=== PATIENT | male | born 1940 | race Caucasian/White ===

== ENCOUNTER 2017-09-30 12:45 | Emergency (ER) | payer MEDICARE, OTHER ==
[2017-09-30 13:37] VITALS: BP 130/52
[2017-09-30 14:27] LABS: CHLORIDE,CL 95 mmol/L (101-111); SODIUM,NA 135 mmol/L (135-145)
--- NOTE | 2017-09-30 14:56 | EDM.PDOC ---
ED HPI GENERAL MEDICAL PROBLEM - General Chief Complaint: General Stated Complaint: INFECTION IN ARM [phone] Time Seen by Provider: 09/30/17 13:35 Source of Information: Reports: Patient, RN, RN Notes Reviewed, Other (Dialysis notes) History Limitations: Reports: No Limitations - History of Present Illness INITIAL COMMENTS - FREE TEXT/NARRATIVE: Pt presents to the ER with multiple complaints. Pt states that he was to see Dr. Lundberg at the clinic today. He was told that he could not be seen by Dr. Lundberg and was to go to the ER. He is concerned about is INR level, his blood sugars, and an infection that he was told he had in his dialysis AV fistula buttonhole. He denies fever, chills, N/V/D, chest pain, or sob. Onset: Gradual - Related Data Allergies Allergy/AdvReac Type Severity Reaction Status Date / Time cephalexin Allergy Unknown unknown Verified 10/05/16 10:20 erythromycin base Allergy Swelling Verified 10/04/16 19:56 Iodinated Contrast- Oral and Allergy Swelling Verified 10/04/16 19:56 IV Dye [Iodinated Contrast Media - IV Dye] levofloxacin [From Levaquin] Allergy Swelling Verified 10/04/16 19:56 sulfamethoxazole Allergy Swelling Verified 10/04/16 19:56 [From Bactrim] trimethoprim [From Bactrim] Allergy Swelling Verified 10/04/16 19:56 Home Meds: Home Meds Allopurinol [Zyloprim] 100 mg PO DAILY 10/04/16 [History] Docusate Sodium [Colace] 100 mg PO BID 10/04/16 [History] Insulin Aspart [NovoLOG] 15 unit SUBCUT ACBED 10/04/16 [History] Insulin Glargine,Hum.Rec.Anlog [Lantus Solostar] 45 unit SQ BEDTIME 10/04/16 [ History] Metoprolol Succinate [Toprol XL] 25 mg PO DAILY 10/04/16 [History] Simvastatin [Zocor] 40 mg PO BEDTIME 10/04/16 [History] Warfarin Sodium [Coumadin] 6 mg PO .SUN,TUES, THUR,SAT 10/04/16 [History] Tamsulosin HCl [Flomax] 0.4 mg PO DAILY 09/30/17 [History] Warfarin [Coumadin] 5 mg PO .MON,WED,FRI 11/03/17 [History] Past Medical History HEENT History: Reports: Impaired Vision Cardiovascular History: Reports: Blood Clots/VTE/DVT, High Cholesterol, Hypertension Gastrointestinal History: Reports: Hiatal Hernia Genitourinary History: Reports: Dialysis Endocrine/Metabolic History: Reports: None, Diabetes, Type II - Past Surgical History HEENT Surgical History: Reports: Cataract Surgery Other Musculoskeletal Surgeries/Procedures:: multiple surgies LLE Social & Family History - Family History Family Medical History: Noncontributory - Tobacco Use Smoking Status *Q: Former Smoker Years of Tobacco use: 40 Used Tobacco, but Quit: Yes Month Tobacco Last Used: 20 years ago - Caffeine Use Caffeine Use: Reports: None - Recreational Drug Use Recreational Drug Use: No ED ROS GENERAL - Review of Systems Review Of Systems: ROS reveals no pertinent complaints other than HPI. ED EXAM, GENERAL - Physical Exam Exam: See Below Exam Limited By: No Limitations General Appearance: Alert, WD/WN, No Apparent Distress Eye Exam: Bilateral Eye: Normal Inspection Ears: Normal External Exam, Hearing Grossly Normal Nose: Normal Inspection Throat/Mouth: Normal Inspection, Normal Voice, No Airway Compromise Head: Atraumatic, Normocephalic Neck: Normal Inspection, Full Range of Motion Respiratory/Chest: No Respiratory Distress, No Accessory Muscle Use, Chest Non- Tender, Decreased Breath Sounds Cardiovascular: Normal Peripheral Pulses, Regular Rate, Rhythm, No Edema, No Gallop, No JVD, No Murmur, No Rub Peripheral Pulses: 2+: Radial (L), Radial (R) GI/Abdominal: Normal Bowel Sounds, Soft, Non-Tender (Male) Exam: Deferred Rectal (Males) Exam: Deferred Back Exam: Normal Inspection, Full Range of Motion Extremities: Normal Inspection, Normal Range of Motion, Non-Tender, No Pedal Edema, Normal Capillary Refill Neurological: Alert, Oriented, Normal Cognition, Normal Gait (with walker), No Motor/Sensory Deficits Psychiatric: Normal Affect, Normal Mood Skin Exam: Warm, Dry, Intact, Normal Color, No Rash, Other (AV fistula to the right upper arm has buttonholes, the lower one is somewhat erythematous. Pt states it was oozing pus 2 days ago and he was started on Abx by dialysis [employer]) Lymphatic: No Adenopathy Course - Vital Signs Last Recorded V/S: Last Vital Signs Temp 97.2 F 09/30/17 13:34 Pulse 77 09/30/17 13:34 Resp 16 09/30/17 13:34 BP 130/52 L 09/30/17 13:34 Pulse Ox 95 09/30/17 13:34 - Orders/Labs/Meds Labs: Laboratory Tests 09/30/17 09/30/17 09/30/17 Range/Units 13:50 13:50 13:50 WBC 7.8 (5.0-10.0) 10^3/uL RBC 3.78 L (4.6-6.2) 10^6/uL Hgb 10.6 L (14.0-18.0) g/dL Hct 35.6 L (40.0-54.0) % MCV 94.2 D (80-100) fL MCH 28.0 (27.0-34.0) pg MCHC 29.8 L (33.0-35.0) g/dL Plt Count 167 (150-450) 10^3/uL Neut % (Auto) 67.6 (42.2-75.2) % Lymph % (Auto) 16.4 L (20.5-50.1) % [place] % (Auto) 8.8 H (2-8) % Eos % (Auto) 6.7 H (1.0-3.0) % Baso % (Auto) 0.5 (0.0-1.0) % PT (9.0-12.0) SEC INR (0.9-1.2) Sodium 135 (135-145) mmol/L Potassium 5.2 H (3.6-5.0) mmol/L Chloride 95 L (101-111) mmol/L Carbon Dioxide 25.0 (21.0-31.0) mmol/L Anion Gap 20.2 BUN 51 H D (7-18) mg/dL Creatinine 5.1 H (0.6-1.3) mg/dL Est Cr Clr Drug Dosing TNP Estimated GFR (MDRD) 11 BUN/Creatinine Ratio 10.00 Glucose 295 H (74-105) mg/dL Lactic Acid 1.3 (0.5-2.2) mmol/L Calcium 8.3 L (8.4-10.2) mg/dl Total Bilirubin 0.5 (0.2-1.0) mg/dL AST 22 (10-42) IU/L ALT 16 (10-60) IU/L Alkaline Phosphatase 170 H (42-121) IU/L Total Protein 8.1 (6.7-8.2) g/dl Albumin 3.2 (3.2-5.5) g/dl Globulin 4.9 Albumin/Globulin Ratio 0.65 /03/17 Range/Units 13:50 WBC (5.0-10.0) 10^3/uL RBC (4.6-6.2) 10^6/uL Hgb (14.0-18.0) g/dL Hct (40.0-54.0) % MCV (80-100) fL MCH (27.0-34.0) pg MCHC (33.0-35.0) g/dL Plt Count (150-450) 10^3/uL Neut % (Auto) (42.2-75.2) % Lymph % (Auto) (20.5-50.1) % [place] % (Auto) (2-8) % Eos % (Auto) (1.0-3.0) % Baso % (Auto) (0.0-1.0) % PT 23.0 H D (9.0-12.0) SEC INR 2.3 H (0.9-1.2) Sodium (135-145) mmol/L Potassium (3.6-5.0) mmol/L Chloride (101-111) mmol/L Carbon Dioxide (21.0-31.0) mmol/L Anion Gap BUN (7-18) mg/dL Creatinine (0.6-1.3) mg/dL Est Cr Clr Drug Dosing Estimated GFR (MDRD) BUN/Creatinine Ratio Glucose (74-105) mg/dL Lactic Acid (0.5-2.2) mmol/L Calcium (8.4-10.2) mg/dl Total Bilirubin (0.2-1.0) mg/dL AST (10-42) IU/L ALT (10-60) IU/L Alkaline Phosphatase (42-121) IU/L Total Protein (6.7-8.2) g/dl Albumin (3.2-5.5) g/dl Globulin Albumin/Globulin Ratio Departure - Departure Time of Disposition: 14:51 Disposition: Home, Self-Care 01 Condition: Fair Clinical Impression: Dialysis AV fistula infection Qualifiers: Encounter type: sequela Qualified Code(s): T82.7XXS - Infection and inflammatory reaction due to other cardiac and vascular devices, implants and grafts, sequela Hyperglycemia due to type 2 diabetes mellitus Qualifiers: Diabetes mellitus skilled nursing insulin use: with equipment operator intermodal yard use Qualified Code(s): E11.65 - Type 2 diabetes mellitus with hyperglycemia - Discharge Information Instructions: Wound Infection, [id number], Hyperglycemia, [id number], Blood Glucose Monitoring, Adult Referrals: David Lundberg MD [Primary Care Provider] - Forms: ED Department Discharge Additional Instructions: Follow up with your primary care facility next week. Continue taking the antibiotic prescribed for the infection in the fistula. Continue monitoring your blood sugar. Continue coumadin as usual.
== END 2017-09-30 15:12 | disposition home or self-care (01) ==
LOC: DL.ED 12:45
DX: T82.7XXS Infection and inflammatory reaction due to other cardiac and vascular devices, implants and grafts, sequela (principal); E11.65 Type 2 diabetes mellitus with hyperglycemia; Z88.1 Allergy status to other antibiotic agents; Z79.899 Other long term (current) drug therapy; Z79.4 Long term (current) use of insulin; Z87.891 Personal history of nicotine dependence; Z79.01 Long term (current) use of anticoagulants
CPT/HCPCS: 36415; 80053; 83605; 85025; 85610; 87040; 99283

== ENCOUNTER 2017-12-15 20:00 | Emergency (ER) | payer MEDICARE, OTHER ==
[2017-12-15] MEDS ORDERED: Sodium Chloride 0.9% 10 ML Syringe FLUSH PRN (20:06)
[2017-12-15] MEDS ORDERED: Acetaminophen/oxyCODONE 325-5 MG Tab PO ONE (20:17)
--- NOTE | 2017-12-15 20:17 | EDM.PDOC ---
ED HPI GENERAL MEDICAL PROBLEM - General Chief Complaint: General Stated Complaint: CAME BY AMBULANCE Time Seen by Provider: 12/15/17 20:05 Source of Information: Reports: Patient, EMS History Limitations: Reports: No Limitations - History of Present Illness INITIAL COMMENTS - FREE TEXT/NARRATIVE: Pt comes to the ED with complaints of weakness to his legs leading to an inability to ambulate. The patient had dialysis today and after his run was unable to stand and needed help to get into the wheelchair to go home. He relates he should of come in at that time. He did not get back to his dry weight 164kg and only got down to 175kg down from 179. Prior to dialysis he was without complaints. He denies any CP. Does complain of SOB but that is chronic for him and he is always SOB. DOes have a congested cough that is non- productive that has been present for the past 2 weeks every since he has not gotten back down to his dry weight after dialysis. Denies any fever or chills. Makes no urine. NO abd pain nausea or vomiting. Does have some swelling to bilateral ankles although this is chronic for him and no increased amount of swelling. Complains of leg cramps primarily in the RLE increasingly over the past few days as well. NO open sores on his body. He is a Tuesday dialysis who was suppose to get an extra dialysis run yesterday due to these complaints although was unable to make it to his appointment. - Related Data Allergies Allergy/AdvReac Type Severity Reaction Status Date / Time cephalexin Allergy Unknown unknown Verified 10/05/16 10:20 erythromycin base Allergy Swelling Verified 10/04/16 19:56 Iodinated Contrast- Oral and Allergy Swelling Verified 10/04/16 19:56 IV Dye [Iodinated Contrast Media - IV Dye] levofloxacin [From Levaquin] Allergy Swelling Verified 10/04/16 19:56 sulfamethoxazole Allergy Swelling Verified 10/04/16 19:56 [From Bactrim] trimethoprim [From Bactrim] Allergy Swelling Verified 10/04/16 19:56 Home Meds: Home Meds Allopurinol [Zyloprim] 100 mg PO DAILY 10/04/16 [History] Docusate Sodium [Colace] 100 mg PO BID 10/04/16 [History] Insulin Aspart [NovoLOG] 15 unit SUBCUT ACBED 10/04/16 [History] Insulin Glargine,Hum.Rec.Anlog [Lantus Solostar] 45 unit SQ BEDTIME 10/04/16 [ History] Metoprolol Succinate [Toprol XL] 25 mg PO DAILY 10/04/16 [History] Simvastatin [Zocor] 40 mg PO BEDTIME 10/04/16 [History] Warfarin Sodium [Coumadin] 6 mg PO .SUN,TUES, THUR,SAT 10/04/16 [History] Tamsulosin HCl [Flomax] 0.4 mg PO DAILY 09/30/17 [History] Warfarin [Coumadin] 5 mg PO .MON,WED,FRI 09/30/17 [History] Past Medical History HEENT History: Reports: Impaired Vision Cardiovascular History: Reports: Blood Clots/VTE/DVT, High Cholesterol, Hypertension Gastrointestinal History: Reports: Hiatal Hernia Genitourinary History: Reports: Dialysis Endocrine/Metabolic History: Reports: None, Diabetes, Type II - Past Surgical History HEENT Surgical History: Reports: Cataract Surgery Other Musculoskeletal Surgeries/Procedures:: multiple surgies LLE Social & Family History - Family History Family Medical History: Noncontributory - Tobacco Use Smoking Status *Q: Former Smoker Years of Tobacco use: 40 Used Tobacco, but Quit: Yes Month Tobacco Last Used: 20 years ago - Caffeine Use Caffeine Use: Reports: None - Recreational Drug Use Recreational Drug Use: No ED ROS GENERAL - Review of Systems Review Of Systems: ROS reveals no pertinent complaints other than HPI. ED EXAM, GENERAL - Physical Exam Exam: See Below Exam Limited By: No Limitations General Appearance: Alert, WD/WN, Anxious, Mild Distress, Other (Morbidly obese patient. Rather malordorous from body odor. ) Eye Exam: Bilateral Eye: Normal Inspection Ears: Normal External Exam Nose: Normal Inspection, Normal Mucosa Throat/Mouth: Normal Inspection, Normal Lips, Normal Teeth Head: Atraumatic Neck: Normal Inspection Respiratory/Chest: No Accessory Muscle Use, Chest Non-Tender, Respiratory Distress (Mild only able to speak in 3-4 word sentences in between congested non -productive coughin. ), Decreased Breath Sounds, Rales (Bases bilaterally. ) Cardiovascular: Normal Peripheral Pulses, Tachycardia, Irregularly Irregular ( Afib with frequent bigeminy. ), Other (Distant heart tones. ) Peripheral Pulses: 2+: Carotid (L), Carotid (R), Radial (L), Radial (R) GI/Abdominal: Normal Bowel Sounds, Soft, Non-Tender, No Distention, Other ( Rounded obese with edema pitting to the lower aspect of the abd with umbilical hernia which is soft and non-tender. Unable to assess for mass or organomegaly due to body habitus. ) (Male) Exam: Deferred Rectal (Males) Exam: Deferred Back Exam: Normal Inspection Extremities: Normal Range of Motion, Normal Capillary Refill, Pedal Edema ( Bilaterally more on the right than the left. Pulses palpable. Jh wraps to bilateraly lower extremities. Tenderness to the right calf intermittently. PT calls it a cramp. ), Leg Pain (R posterior calf. ) Neurological: Alert, Oriented Psychiatric: Normal Affect, Normal Mood Skin Exam: Warm, Intact, Normal Color Lymphatic: No Adenopathy EKG INTERPRETATION EKG Date: 12/15/17 Time: 19:56 Rhythm: A-Fib (With bigeminy.) Rate (Beats/Min): 110 [place]: Normal P-Wave: Variable QRS: Normal ST-T: Normal QT: Normal Comparison: No Change (Frequent VEBs on current and previous EKGs.) Course - Vital Signs Last Recorded V/S: Last Vital Signs Temp 36.7 C 12/15/17 21:52 Pulse 105 H 12/15/17 21:52 Resp 22 H 12/15/17 21:52 BP 115/45 L 12/15/17 21:52 Pulse Ox 92 L 12/15/17 20:00 - Orders/Labs/Meds Orders: Active Orders 24 hr Category Date Time Status EKG 12 Lead [EKG Documentation Completion] [RC] URGENT Care 12/15/17 20:05 Active Peripheral IV Care [RC] . DIRECTED Care 12/15/17 20:06 Active Magnesium Sulfate/Water [Magnesium Sulfate 2 GM in Med 12/15/17 20:47 Active Water 50 ML] 2 gm Premix Bag 1 bag IV ONETIME Sodium Chloride 0.9% [Saline Flush] Med 12/15/17 20:06 Active 10 ml FLUSH ASDIRECTED PRN Peripheral IV Insertion Adult [OM.PC] Stat Oth 12/15/17 20:05 Ordered Medication Orders Magnesium Sulfate 2 gm/ Premix 50 mls @ 25 mls/hr IV ONETIME ONE Stop: 12/15/17 22:46 Last Admin: 12/15/17 20:59 Dose: 25 mls/hr Sodium Chloride (Saline Flush) 10 ml FLUSH ASDIRECTED PRN PRN Reason: Keep Vein Open Last Admin: 12/15/17 20:35 Dose: 10 ml Labs: Laboratory Tests 12/15/17 12/15/17 12/15/17 Range/Units 20:17 20:17 20:17 WBC 11.0 H (5.0-10.0) 10^3/uL RBC 3.34 L (4.6-6.2) 10^6/uL Hgb 9.4 L (14.0-18.0) g/dL Hct 31.4 L (40.0-54.0) % MCV 94.0 (80-100) fL MCH 28.1 (27.0-34.0) pg MCHC 29.9 L (33.0-35.0) g/dL Plt Count 191 (150-450) 10^3/uL Neut % (Auto) 80.3 H (42.2-75.2) % Lymph % (Auto) 10.1 L (20.5-50.1) % [place] % (Auto) 7.2 (2-8) % Eos % (Auto) 2.1 (1.0-3.0) % Baso % (Auto) 0.3 (0.0-1.0) % PT 33.3 H D (9.0-12.0) SEC INR 3.3 H (0.9-1.2) Sodium 135 (135-145) mmol/L Potassium 4.8 (3.6-5.0) mmol/L Chloride 96 L (101-111) mmol/L Carbon Dioxide 28.0 (21.0-31.0) mmol/L Anion Gap 15.8 BUN 37 H (7-18) mg/dL Creatinine 4.7 H (0.6-1.3) mg/dL Est Cr Clr Drug Dosing 16.23 mL/min Estimated GFR (MDRD) 12 BUN/Creatinine Ratio 7.87 Glucose 188 H (74-105) mg/dL Calcium 7.2 L (8.4-10.2) mg/dl Magnesium 1.4 L (1.8-2.5) mg/dL Total Bilirubin 0.8 (0.2-1.0) mg/dL AST 21 (10-42) IU/L ALT 17 (10-60) IU/L Alkaline Phosphatase 190 H (42-121) IU/L Troponin I 0.05 H* (0.00-0.02) ng/ml C-Reactive Protein (0.0-1.3) mg/dL B-Natriuretic Peptide 245 H (0-100) pg/ml Total Protein 7.7 (6.7-8.2) g/dl Albumin 2.9 L (3.2-5.5) g/dl Globulin 4.8 Albumin/Globulin Ratio 0.60 12/15/17 Range/Units 20:17 WBC (5.0-10.0) 10^3/uL RBC (4.6-6.2) 10^6/uL Hgb (14.0-18.0) g/dL Hct (40.0-54.0) % MCV (80-100) fL MCH (27.0-34.0) pg MCHC (33.0-35.0) g/dL Plt Count (150-450) 10^3/uL Neut % (Auto) (42.2-75.2) % Lymph % (Auto) (20.5-50.1) % [place] % (Auto) (2-8) % Eos % (Auto) (1.0-3.0) % Baso % (Auto) (0.0-1.0) % PT (9.0-12.0) SEC INR (0.9-1.2) Sodium (135-145) mmol/L Potassium (3.6-5.0) mmol/L Chloride (101-111) mmol/L Carbon Dioxide (21.0-31.0) mmol/L Anion Gap BUN (7-18) mg/dL Creatinine (0.6-1.3) mg/dL Est Cr Clr Drug Dosing mL/min Estimated GFR (MDRD) BUN/Creatinine Ratio Glucose (74-105) mg/dL Calcium (8.4-10.2) mg/dl Magnesium (1.8-2.5) mg/dL Total Bilirubin (0.2-1.0) mg/dL AST (10-42) IU/L ALT (10-60) IU/L Alkaline Phosphatase (42-121) IU/L Troponin I (0.00-0.02) ng/ml C-Reactive Protein 9.2 H (0.0-1.3) mg/dL B-Natriuretic Peptide (0-100) pg/ml Total Protein (6.7-8.2) g/dl Albumin (3.2-5.5) g/dl Globulin Albumin/Globulin Ratio Meds: Medications Generic Name Dose Route Start Last Admin Trade Name Freq PRN Reason Stop Dose Admin Magnesium Sulfate 2 gm/ Premix 50 mls @ 25 mls/hr 12/15/17 20:47 12/15/17 20: 59 IV 12/15/17 22:46 25 mls/hr ONETIME ONE Administration Sodium Chloride 10 ml 12/15/17 20:06 12/15/17 20:35 Saline Flush FLUSH 10 ml ASDIRECTED PRN Administration Keep Vein Open Discontinued Medications Generic Name Dose Route Start Last Admin Trade Name Freq PRN Reason Stop Dose Admin Oxycodone/Acetaminophen 1 tab 12/15/17 20:17 12/15/17 20:32 Percocet 325-5 Mg PO 12/15/17 20:18 1 tab ONETIME ONE Administration - Radiology Interpretation Free Text/Narrative:: No acute change per radiology Although I question vascular congestion bilaterally in the lower lobes. - Re-Assessments/Exams Free Text/Narrative Re-Assessment/Exam: 12/15/17 22:08 Magnesium 2gram IVPB. Percocet for leg cramps. Continue oxygen therapy. Departure - Departure Time of Disposition: 21:40 Disposition: DC/Tfer to Acute Hospital 02 Clinical Impression: CHF, Congestive heart failure, Hypomagnesemia, Chronic anticoagulation, Muscle cramps - Discharge Information Referrals: PCP,None [Primary Care Provider] - Forms: ED Department Discharge, Interfacility Transfer [facility] ED Communication - Discussed Case With (1) Discussed Case With (1): Admitting Provider (Spoke with DR. Scott at [facility] in the ER and he did accept the patient in transfer at this time. May have to hold int ED for a short of period of time for a bed to open. Lisa is on divert. Pt okay with waiting in the ED in [place] for a bed to open. HPI ER COURSE concerns and findings were relayed to Dr. Scott over the phone and he accepted the patient in transfer to [facility].) - My Orders Last 24 Hours: My Active Orders 12/15/17 20:05 EKG 12 Lead [EKG Documentation Completion] [RC] URGENT Peripheral IV Insertion Adult [OM.PC] Stat 12/15/17 20:06 Peripheral IV Care [RC] . DIRECTED Sodium Chloride 0.9% [Saline Flush] 10 ml FLUSH ASDIRECTED PRN 12/15/17 20:47 Magnesium Sulfate/Water [Magnesium Sulfate 2 GM in Water 50 ML] 2 gm Premix Bag 1 bag IV ONETIME - Assessment/Plan Last 24 Hours: My Active Orders 12/15/17 20:05 EKG 12 Lead [EKG Documentation Completion] [RC] URGENT Peripheral IV Insertion Adult [OM.PC] Stat 12/15/17 20:06 Peripheral IV Care [RC] . DIRECTED Sodium Chloride 0.9% [Saline Flush] 10 ml FLUSH ASDIRECTED PRN 12/15/17 20:47 Magnesium Sulfate/Water [Magnesium Sulfate 2 GM in Water 50 ML] 2 gm Premix Bag 1 bag IV ONETIME Assessment:: SOB, fluid over load CRF needs dialysis hypomagnesemia. Weakness unable to stand most likely due to fluid overload and electrolyte abnormality. Generalize muscle cramps most likely due to the low magnesium. Atrial fibrillation with frequent ventricular escape beats which is chronic for this patient. Therapeutic INR. Morbid obesity.
[2017-12-15] MEDS ORDERED: Magnesium Sulfate/Water 2 GM in Premix Bag 1 BAG IV ONE (20:47)
[2017-12-15 21:54] VITALS: BP 115/45
--- NOTE | 2017-12-21 09:50 | EKG ---
12/15/2017- PATRIC DAY - FINDINGS: EKG, per my reading, shows atrial fibrillation with frequent PVCs. MOD /[id number]
== END 2017-12-15 22:50 ==
LOC: DL.ED 20:00
DX: I13.0 Hypertensive heart and chronic kidney disease with heart failure and stage 1 through stage 4 chronic kidney disease, or unspecified chronic kidney disease (principal); I50.9 Heart failure, unspecified; N18.9 Chronic kidney disease, unspecified; E83.42 Hypomagnesemia; E66.01 Morbid (severe) obesity due to excess calories; E78.00 Pure hypercholesterolemia, unspecified; E11.9 Type 2 diabetes mellitus without complications; I48.91 Unspecified atrial fibrillation; Z79.4 Long term (current) use of insulin; Z79.01 Long term (current) use of anticoagulants; Z79.899 Other long term (current) drug therapy; Z88.1 Allergy status to other antibiotic agents; Z88.2 Allergy status to sulfonamides; Z91.041 Radiographic dye allergy status; Z87.891 Personal history of nicotine dependence; Z99.2 Dependence on renal dialysis
CPT/HCPCS: 36415; 71045; 80053; 83735; 83880; 84484; 85025; 85610; 86140; 93005; 93010; 99285; A9270; J7050; J3475

== ENCOUNTER 2018-04-21 10:33 | Emergency (ER) | payer MEDICARE, OTHER ==
[2018-04-21] MEDS ORDERED: Sodium Chloride 0.9% 10 ML Syringe FLUSH PRN (10:34)
[2018-04-21] MEDS ORDERED: Sodium Chloride 0.9% 1,000 ML IV ONE (10:47)
[2018-04-21 10:55] VITALS: BP 106/59
[2018-04-21 11:23] LABS: O2 DELIVERY DEVICE ROOM AIR; PCO2 VENOUS 46 mmHg (41-51); PH,VENOUS 7.41 (7.31-7.41)
[2018-04-21 11:24] LABS: BASE EXCESS VENOUS 3.8 mmol/l ((-2)-(+3)); BICARBONATE,VENOUS 29 mmol/l (19-25); O2 SATURATION VENOUS 61.7 % (60-80); PO2 VENOUS 33 mmHg (35-42)
--- NOTE | 2018-04-21 11:58 | CR ---
CLINICAL HISTORY: 77-year-old morbidly obese male with low-grade temperature and tachycardia. Chest p ain. INTERPRETATION: Upright rotated AP portable chest film with respiratory motion reveals no new signs o f focal lobar pneumonia, i.e., no new infiltrate or atelectasis when compared directly to 15 December 2017 exam. Cardiomegaly but without alveolar edema or dependent pleural effusion. CONCLUSION: No new cardiopulmonary abnormality since November exam (technically suboptimal).
[2018-04-21] MEDS ORDERED: Piperacillin/Tazobactam 3.375 GM in Sodium Chloride 0.9% 100 ML IV ONE (12:00)
[2018-04-21] MEDS ORDERED: Acetaminophen 325 MG Tab PO ONE (12:11)
[2018-04-21] MEDS ORDERED: Vancomycin 1.5 GM in Sodium Chloride 0.9% 500 ML IV ONE (12:13)
--- NOTE | 2018-04-21 12:16 | EDM.PDOC ---
ED HPI GENERAL MEDICAL PROBLEM - General Chief Complaint: Cardiovascular Problem Stated Complaint: AMBULANCE Time Seen by Provider: 04/21/18 10:53 Source of Information: Reports: Patient, EMS, EMS Notes Reviewed, RN, RN Notes Reviewed History Limitations: Reports: No Limitations - History of Present Illness INITIAL COMMENTS - FREE TEXT/NARRATIVE: Patient presents to ER per [facility] with complaint of "slipping" out of bed. Patient is somewhat confused upon arrival. States he has been somewhat "out of sorts". Patient states he is due for dialysis tomorrow. He denies illness. Onset: Today Location: Reports: Generalized Quality: Reports: Ache Severity: Moderate Improves with: Reports: None Worsens with: Reports: None Associated Symptoms: Reports: No Other Symptoms Generalized Pain Score (Numeric/FACES): 1 - Related Data Allergies Allergy/AdvReac Type Severity Reaction Status Date / Time cephalexin Allergy Unknown unknown Verified 10/05/16 10:20 erythromycin base Allergy Swelling Verified 10/04/16 19:56 Iodinated Contrast- Oral and Allergy Swelling Verified 10/04/16 19:56 IV Dye [Iodinated Contrast Media - IV Dye] levofloxacin [From Levaquin] Allergy Swelling Verified 10/04/16 19:56 sulfamethoxazole Allergy Swelling Verified 10/04/16 19:56 [From Bactrim] trimethoprim [From Bactrim] Allergy Swelling Verified 10/04/16 19:56 Home Meds: Home Meds Allopurinol [Zyloprim] 100 mg PO DAILY 10/04/16 [History] Docusate Sodium [Colace] 100 mg PO BID 10/04/16 [History] Insulin Aspart [NovoLOG] 15 unit SUBCUT ACBED 10/04/16 [History] Insulin Glargine,Hum.Rec.Anlog [Lantus Solostar] 45 unit SQ BEDTIME 10/04/16 [ History] Metoprolol Succinate [Toprol XL] 25 mg PO DAILY 10/04/16 [History] Simvastatin [Zocor] 40 mg PO BEDTIME 10/04/16 [History] Warfarin Sodium [Coumadin] 6 mg PO .SUN,TUES, THUR,SAT 10/04/16 [History] Tamsulosin HCl [Flomax] 0.4 mg PO DAILY 09/30/17 [History] Warfarin [Coumadin] 5 mg PO .MON,WED,FRI 09/30/17 [History] Past Medical History HEENT History: Reports: Impaired Vision Cardiovascular History: Reports: Blood Clots/VTE/DVT, High Cholesterol, Hypertension Respiratory History: Reports: SOB Gastrointestinal History: Reports: Hiatal Hernia Genitourinary History: Reports: Dialysis Endocrine/Metabolic History: Reports: Diabetes, Type II - Past Surgical History HEENT Surgical History: Reports: Cataract Surgery Other Musculoskeletal Surgeries/Procedures:: multiple surgies LLE Social & Family History - Family History Family Medical History: Noncontributory - Tobacco Use Smoking Status *Q: Former Smoker Used Tobacco, but Quit: No - Caffeine Use Caffeine Use: Reports: None - Recreational Drug Use Recreational Drug Use: No ED ROS GENERAL - Review of Systems Review Of Systems: ROS reveals no pertinent complaints other than HPI. ED EXAM, GENERAL - Physical Exam Exam: See Below Exam Limited By: No Limitations General Appearance: Lethargic Eye Exam: Bilateral Eye: EOMI, Normal Inspection Ears: Normal External Exam, Normal Canal, Hearing Grossly Normal, Normal TMs Nose: Normal Inspection, Normal Mucosa, No Blood Throat/Mouth: Normal Inspection, Normal Lips, Normal Teeth, Normal Gums, Normal Oropharynx, Normal Voice, No Airway Compromise Head: Atraumatic, Normocephalic Neck: Normal Inspection, Supple, Non-Tender, Full Range of Motion Respiratory/Chest: Other (decreased air entry) Cardiovascular: Other (Irregular. Pedal/dependent edema wrapped with Jh wraps. ) GI/Abdominal: Other (large distended umbilical hernia.) (Male) Exam: Deferred Rectal (Males) Exam: Deferred Back Exam: Decreased Range of Motion Extremities: Other (decreased range of motion. Weak.) Neurological: Other (somewhat confusesd and lethargic upon arrival. Sensorium clears as time passes. ) Psychiatric: Normal Affect, Normal Mood Skin Exam: Warm, Dry, Intact, Normal Color, No Rash Lymphatic: No Adenopathy EKG INTERPRETATION EKG Date: 04/21/18 Time: 10:38 Rhythm: A-Fib Rate (Beats/Min): 132 EKG Interpretation Comments: EKG done 04/21/18 at 10:38 showed ventricular bigeminy, nonspecific intraventricular conduction delay and abnormal R prog, consider ASMI or Lead placement. Course - Vital Signs Last Recorded V/S: Last Vital Signs Temp 101.0 F H 04/21/18 10:53 Pulse 138 H 04/21/18 10:53 Resp 40 H 04/21/18 10:53 BP 106/59 L 04/21/18 10:53 Pulse Ox 94 L 04/21/18 10:53 - Orders/Labs/Meds Orders: Active Orders 24 hr Category Date Time Status EKG Documentation Completion [RC] STAT Care 04/21/18 10:35 Active Peripheral IV Care [RC] . DIRECTED Care 04/21/18 10:35 Active CULTURE BLOOD [BC] Stat Lab 04/21/18 10:50 Results CULTURE BLOOD [BC] Stat Lab 04/21/18 10:57 Received Blood Culture x2 Reflex Set [OM.PC] Stat Oth 04/21/18 10:35 Ordered Peripheral IV Insertion Adult [OM.PC] Stat Oth 04/21/18 10:35 Ordered Labs: Laboratory Tests 04/21/18 04/21/18 04/21/18 Range/Units 10:57 10:57 10:57 WBC 22.5 H (5.0-10.0) 10^3/uL RBC 3.87 L (4.6-6.2) 10^6/uL Hgb 10.2 L (14.0-18.0) g/dL Hct 34.8 L (40.0-54.0) % MCV 89.9 D (80-100) fL MCH 26.4 L (27.0-34.0) pg MCHC 29.3 L (33.0-35.0) g/dL Plt Count 189 (150-450) 10^3/uL Neut % (Auto) 88.3 H (42.2-75.2) % Lymph % (Auto) 5.0 L (20.5-50.1) % Alcorn % (Auto) 6.0 (2-8) % Eos % (Auto) 0.5 L (1.0-3.0) % Baso % (Auto) 0.2 (0.0-1.0) % PT (9.0-12.0) SEC INR (0.9-1.2) VBG pH (7.31-7.41) VBG pCO2 (41-51) mmHg VBG pO2 (35-42) mmHg VBG HCO3 (19-25) mmol/l VBG O2 Saturation (60-80) % VBG Base Excess ((-2)-(+3)) mmol/l O2 Delivery Device Sodium 132 L (135-145) mmol/L Potassium 4.9 (3.6-5.0) mmol/L Chloride 95 L (101-111) mmol/L Carbon Dioxide 26.0 (21.0-31.0) mmol/L Anion Gap 15.9 BUN 41 H (7-18) mg/dL Creatinine 5.1 H (0.6-1.3) mg/dL Est Cr Clr Drug Dosing 14.96 mL/min Estimated GFR (MDRD) 11 BUN/Creatinine Ratio 8.03 Glucose 366 H (74-105) mg/dL Lactic Acid 2.3 H (0.5-2.2) mmol/L Calcium 9.1 D (8.4-10.2) mg/dl Magnesium (1.8-2.5) mg/dL Total Bilirubin 0.6 (0.2-1.0) mg/dL AST 25 (10-42) IU/L ALT 15 (10-60) IU/L Alkaline Phosphatase 184 H (42-121) IU/L Troponin I 0.06 H* (0.00-0.02) ng/ml B-Natriuretic Peptide 444 H (0-100) pg/ml Total Protein 7.3 (6.7-8.2) g/dl Albumin 2.9 L (3.2-5.5) g/dl Globulin 4.4 Albumin/Globulin Ratio 0.66 04/21/18 18 / Range/Units 10:57 10:57 11:04 WBC (5.0-10.0) 10^3/uL RBC (4.6-6.2) 10^6/uL Hgb (14.0-18.0) g/dL Hct (40.0-54.0) % MCV (80-100) fL MCH (27.0-34.0) pg MCHC (33.0-35.0) g/dL Plt Count (150-450) 10^3/uL Neut % (Auto) (42.2-75.2) % Lymph % (Auto) (20.5-50.1) % Alcorn % (Auto) (2-8) % Eos % (Auto) (1.0-3.0) % Baso % (Auto) (0.0-1.0) % PT 30.1 H (9.0-12.0) SEC INR 3.1 H (0.9-1.2) VBG pH 7.41 (7.31-7.41) VBG pCO2 46 (41-51) mmHg VBG pO2 33 L (35-42) mmHg VBG HCO3 29 H (19-25) mmol/l VBG O2 Saturation 61.7 (60-80) % VBG Base Excess 3.8 H ((-2)-(+3)) mmol/l O2 Delivery Device Room air Sodium (135-145) mmol/L Potassium (3.6-5.0) mmol/L Chloride (101-111) mmol/L Carbon Dioxide (21.0-31.0) mmol/L Anion Gap BUN (7-18) mg/dL Creatinine (0.6-1.3) mg/dL Est Cr Clr Drug Dosing mL/min Estimated GFR (MDRD) BUN/Creatinine Ratio Glucose (74-105) mg/dL Lactic Acid (0.5-2.2) mmol/L Calcium (8.4-10.2) mg/dl Magnesium 1.6 L (1.8-2.5) mg/dL Total Bilirubin (0.2-1.0) mg/dL AST (10-42) IU/L ALT (10-60) IU/L Alkaline Phosphatase (42-121) IU/L Troponin I (0.00-0.02) ng/ml B-Natriuretic Peptide (0-100) pg/ml Total Protein (6.7-8.2) g/dl Albumin (3.2-5.5) g/dl Globulin Albumin/Globulin Ratio Meds: Medications Discontinued Medications Generic Name Dose Route Start Last Admin Trade Name Freq PRN Reason Stop Dose Admin Acetaminophen 650 mg 04/21/18 12:11 04/21/18 12:31 Tylenol PO 04/21/18 12:12 650 mg NOW ONE Administration Sodium Chloride 1,000 mls @ 999 mls/hr 04/21/18 10:47 04/21/18 11:15 Normal Saline IV 04/21/18 11:47 999 mls/hr .BOLUS ONE Administration Piperacillin Sod/Tazobactam 100 mls @ 200 mls/hr 04/21/18 12:00 04/21/18 12: 31 Sod 3.375 gm/ Sodium Chloride IV 04/21/18 12:29 200 mls/hr ONETIME ONE Administration Vancomycin HCl 1.5 gm/ Sodium 500 mls @ 334 mls/hr 04/21/18 12:13 04/21/18 12 :31 Chloride IV 04/21/18 13:42 334 mls/hr ONETIME ONE Administration Insulin Human Regular 10 unit 04/21/18 12:38 04/21/18 12:41 Humulin R IV 04/21/18 12:39 10 units ONETIME ONE Administration Sodium Chloride 10 ml 04/21/18 10:34 04/21/18 11:15 Saline Flush FLUSH 10 ml ASDIRECTED PRN Administration Keep Vein Open - Radiology Interpretation Free Text/Narrative:: Chest xray: Cardiomegaly, no other acute findings See rad report - Re-Assessments/Exams Free Text/Narrative Re-Assessment/Exam: 04/21/18 16:40 Discussed Pt case with Dr. Em at [facility], who agreed to accept the patient at this time. Bariatric ambulance was requested for transport Departure - Departure Time of Disposition: 12:13 Disposition: DC/Tfer to [facility] 02 Reason for Transfer *Q: Other Condition: Fair, Serious Clinical Impression: Sepsis Qualifiers: Sepsis type: sepsis due to unspecified organism Qualified Code(s): A41.9 - Sepsis, unspecified organism Referrals: PCP,None [Primary Care Provider] - Forms: ED Department Discharge, Interfacility Transfer EMTALA - My Orders Last 24 Hours: My Active Orders 04/21/18 10:35 EKG Documentation Completion [RC] STAT Peripheral IV Care [RC] . DIRECTED Blood Culture x2 Reflex Set [OM.PC] Stat Peripheral IV Insertion Adult [OM.PC] Stat 04/21/18 10:50 CULTURE BLOOD [BC] Stat 04/21/18 10:57 CULTURE BLOOD [BC] Stat - Assessment/Plan Last 24 Hours: My Active Orders 04/21/18 10:35 EKG Documentation Completion [RC] STAT Peripheral IV Care [RC] . DIRECTED Blood Culture x2 Reflex Set [OM.PC] Stat Peripheral IV Insertion Adult [OM.PC] Stat 04/21/18 10:50 CULTURE BLOOD [BC] Stat 04/21/18 10:57 CULTURE BLOOD [BC] Stat
[2018-04-21] MEDS ORDERED: Insulin Regular, Human 100 Units/ML 3 ML Vial IV ONE (12:38)
== END 2018-04-21 12:55 ==
LOC: DL.ED 10:33
DX: A41.9 Sepsis, unspecified organism (principal); E78.00 Pure hypercholesterolemia, unspecified; I10 Essential (primary) hypertension; E11.9 Type 2 diabetes mellitus without complications; Z88.1 Allergy status to other antibiotic agents; Z91.041 Radiographic dye allergy status; Z88.2 Allergy status to sulfonamides; Z79.4 Long term (current) use of insulin; Z79.899 Other long term (current) drug therapy; Z87.891 Personal history of nicotine dependence
CPT/HCPCS: 36415; 71045; 80053; 82803; 83605; 83735; 83880; 84484; 85025; 85610; 87040; 87804; 93005; 99285; A9270; J1815; J2543; J3370; J7030; J7040; J7050

== ENCOUNTER 2018-08-01 15:36 | Emergency (ER) | payer MEDICARE, OTHER ==
[2018-08-01 15:50] VITALS: BP 117/60
[2018-08-01] MEDS ORDERED: Sodium Chloride 0.9% 10 ML Syringe FLUSH PRN (15:52)
[2018-08-01 16:42] LABS: ANION GAP 14.9
[2018-08-01] MEDS ORDERED: Bacitracin Oint 1 GM U/D Packet TOP ONE (17:07)
--- NOTE | 2018-08-01 17:46 | EDM.PDOC ---
"Scribed by Edwige Dumont 08/01/18 [id number] for Kevin Restrepo MD ED HPI GENERAL MEDICAL PROBLEM - General Chief Complaint: Trauma Stated Complaint: FELL Time Seen by Provider: 08/01/18 15:38 Source of Information: Reports: Patient, Old Records, RN, RN Notes Reviewed History Limitations: Reports: No Limitations - History of Present Illness INITIAL COMMENTS - FREE TEXT/NARRATIVE: Pt presents to ER from dialysis after falling in the bathroom, and being too weak to get up. Dialysis nurses report pt has had a 22lb wt gain in the past 2 to 3 days. Pt reports that he fell at home last night and struck his head, but did not have a LOC. He also c/o pain in the middle and low back from the fall. Pt states that he has become progressively weaker this week. Last night he was unable to get up after falling, and he called the ambulance to help him into bed , but did not come to the ER. Pt denies chest pain, lightheadedness, fever, or chills. He admits to shortness of breath, but states that he always has some shortness of breath. Pt was converted to a trauma chart by RN when it was discovered that this anticoagulated (warfarin) pt fell at 0010HRS this morning and struck his head. Onset: Today Onset Date: 08/01/18 Onset Time: 00:10 Duration: Constant, Getting Worse Location: Reports: Head, Back, Generalized Quality: Reports: Ache Severity: Moderate Improves with: Reports: None Worsens with: Reports: None Associated Symptoms: Reports: No Other Symptoms - Related Data Allergies Allergy/AdvReac Type Severity Reaction Status Date / Time cephalexin Allergy Unknown unknown Verified 10/05/16 10:20 erythromycin base Allergy Swelling Verified 10/04/16 19:56 Iodinated Contrast- Oral and Allergy Swelling Verified 10/04/16 19:56 IV Dye [Iodinated Contrast Media - IV Dye] levofloxacin [From Levaquin] Allergy Swelling Verified 10/04/16 19:56 sulfamethoxazole Allergy Swelling Verified 10/04/16 19:56 [From Bactrim] trimethoprim [From Bactrim] Allergy Swelling Verified 10/04/16 19:56 Home Meds: Home Meds Allopurinol [Zyloprim] 100 mg PO DAILY 10/04/16 [History] Docusate Sodium [Colace] 100 mg PO BID 10/04/16 [History] Insulin Aspart [NovoLOG] 15 unit SUBCUT ACBED 10/04/16 [History] Insulin Glargine,Hum.Rec.Anlog [Lantus Solostar] 45 unit SQ BEDTIME 10/04/16 [ History] Simvastatin [Zocor] 40 mg PO BEDTIME 10/04/16 [History] Warfarin Sodium [Coumadin] 7.5 mg PO ASDIRECTED 10/04/16 [History] Tamsulosin HCl [Flomax] 0.4 mg PO BEDTIME 09/30/17 [History] Warfarin [Coumadin] 5 mg PO ASDIRECTED 09/30/17 [History] Calcium Acetate [PhosLo] 667 mg PO ASDIRECTED 08/01/18 [History] Gabapentin [Neurontin] 300 mg PO DAILY 08/01/18 [History] Magnesium Oxide [Magnesium] 400 mg PO DAILY 08/01/18 [History] Past Medical History HEENT History: Reports: Impaired Vision Cardiovascular History: Reports: Blood Clots/VTE/DVT, High Cholesterol, Hypertension, SOB on Exertion Respiratory History: Reports: SOB Gastrointestinal History: Reports: Hiatal Hernia Genitourinary History: Reports: Dialysis Endocrine/Metabolic History: Reports: None, Diabetes, Type II, Obesity/BMI 30+ - Past Surgical History HEENT Surgical History: Reports: Cataract Surgery Other Musculoskeletal Surgeries/Procedures:: multiple surgies LLE Social & Family History - Family History Family Medical History: Noncontributory - Caffeine Use Caffeine Use: Reports: None - Living Situation & Occupation Living situation: Reports: Alone Occupation: Retired Review of Systems - Review of Systems Review Of Systems: ROS reveals no pertinent complaints other than HPI. ED EXAM, GENERAL - Physical Exam Exam: See Below Free Text/Narrative:: PRIMARY TRAUMA SURVEY: Arrives by wheel chair from [facility] without c-collar or head blocked/strapped. Pt awake, alert, oriented to person, place, and date. AIRWAY: Patent nasal and oral airways. Conversant with clear speech. BREATHING: Spontaneous respirations, with lungs decreased sounds in B/L bases, crackles and rales to auscultation B/L. CIRCULATION: Good color, no cyanosis. Intact peripheral pulses at B/L upper distal extremities, Rt arm fistula w/palp. thrill and dressing in place from recent dialysis access with no active bleeding. Heart irreg/irreg. DISABILITY/DEFORMITIES: No bleeding. No upper or lower extremity pain, obvious deformity, lacerations, abrasions, swelling, bruising, discoloration, or other signs of injury. Gallito pelvis intact, stable and non-tender. Abdomen obese benign to exam. Chest non-tender anteriorly, no flail chest, crepitus, or subcutaneous emphysema. Neuro. grossly intact with pt. A&O x3, appropriate conversation, no confusion, CN II-XII intact. No acute motor or sensory deficits, GCS 15 on arrival to ER. Skin clean, dry, warm, and intact. EXPOSURE: No visible injury to back, no vertebral gallito tenderness. Neck non-tender, pt not willing to wear C-collar. SECONDARY TRAUMA SURVEY FOLLOWS: Exam Limited By: No Limitations General Appearance: Alert, No Apparent Distress, Obese, Other (chronically ill, but non-toxic appearing) Eye Exam: Left Eye: Other (chronic Rt pupil sluggishness), Bilateral Eye: EOMI Ears: Normal External Exam, Hearing Grossly Normal Nose: Normal Inspection, Normal Mucosa, No Blood Throat/Mouth: Normal Lips, Normal Oropharynx, Normal Voice, No Airway Compromise Head: Atraumatic, Normocephalic Neck: Normal Inspection, Supple, Non-Tender, Full Range of Motion, Other (C- spine cleared by CT scan, pt not willing to wear C-collar) Respiratory/Chest: No Respiratory Distress, No Accessory Muscle Use, Chest Non- Tender, Decreased Breath Sounds, Crackles, Rales. No: Rhonchi, Wheezing Cardiovascular: Tachycardia, Extra Beats, Irregularly Irregular, Other GI/Abdominal: Normal Bowel Sounds, Soft, No Distention, Other (benign obese abdomen) (Male) Exam: Deferred Rectal (Males) Exam: Deferred Back Exam: Paraspinal Tenderness (upper/mid thoracic and low lumbar regions), Vertebral Tenderness (mild at upper thoracic). No: CVA Tenderness (L), CVA Tenderness (R), Muscle Spasm Extremities: Normal Range of Motion, Pedal Edema. No: Joint Swelling, Increased Warmth Neurological: Alert, Oriented, CN II-XII Intact, Normal Cognition, No Motor/ Sensory Deficits, Other (generalized weakness. GCS 15 at 1hr, and at time of transfer.) Psychiatric: Normal Affect, Normal Mood Skin Exam: Warm, Dry, Normal Color, Other (subacute appearing superficial skin tears x2 at left dorsal hand 1cm x 1xm, and distal left forearm 2cm x 2cm, no active bleeding, no FB, no sign of infection) EKG INTERPRETATION EKG Date: 08/01/18 Time: 15:46 Rhythm: A-Fib Rate (Beats/Min): 104 [place]: Normal P-Wave: Present QRS: Other (ventricular bigeminy and nonspecific IVCD with LAD) ST-T: Normal QT: Normal Course - Vital Signs Last Recorded V/S: Last Vital Signs Temp 36.9 C 08/01/18 15:49 Pulse 101 H 08/01/18 15:49 Resp 19 08/01/18 15:49 BP 117/60 08/01/18 15:49 Pulse Ox 94 L 08/01/18 15:49 - Orders/Labs/Meds Orders: Active Orders 24 hr Category Date Time Status Blood Glucose Check, Bedside [RC] ONETIME Care 08/01/18 15:52 Active EKG 12 Lead [EKG Documentation Completion] [RC] STAT Care 08/01/18 15:51 Active Peripheral IV Care [RC] . DIRECTED Care 08/01/18 15:53 Active Cervical Spine wo Cont [CT] Stat Exams 08/01/18 15:48 Taken Chest 1V Frontal [CR] Stat Exams 08/01/18 15:50 Taken Head wo Cont [CT] Stat Exams 08/01/18 15:48 Taken Lumbar Spine wo Cont [CT] Stat Exams 08/01/18 15:48 Taken Thoracic Spine wo Cont [CT] Stat Exams 08/01/18 15:48 Taken CULTURE BLOOD [BC] Stat Lab 08/01/18 16:00 Results CULTURE BLOOD [BC] Stat Lab 08/01/18 16:09 Received Sodium Chloride 0.9% [Saline Flush] Med 08/01/18 15:52 Active 10 ml FLUSH ASDIRECTED PRN Blood Culture x2 Reflex Set [OM.PC] Stat Oth 08/01/18 15:52 Ordered Peripheral IV Insertion Adult [OM.PC] Stat Oth 08/01/18 15:51 Ordered Medication Orders Sodium Chloride (Saline Flush) 10 ml FLUSH ASDIRECTED PRN PRN Reason: Keep Vein Open Last Admin: 08/01/18 16:05 Dose: 10 ml Labs: Laboratory Tests 08/01/18 08/01/18 08/01/18 Range/Units 16:09 16:09 16:09 WBC 8.8 (5.0-10.0) 10^3/uL RBC 4.10 L (4.6-6.2) 10^6/uL Hgb 11.0 L (14.0-18.0) g/dL Hct 37.2 L (40.0-54.0) % MCV 90.7 (80-100) fL MCH 26.8 L (27.0-34.0) pg MCHC 29.6 L (33.0-35.0) g/dL Plt Count 188 (150-450) 10^3/uL Neut % (Auto) 79.4 H (42.2-75.2) % Lymph % (Auto) 10.5 L (20.5-50.1) % Blair % (Auto) 6.8 (2-8) % Eos % (Auto) 3.2 H (1.0-3.0) % Baso % (Auto) 0.1 (0.0-1.0) % PT 31.3 H (9.0-12.0) SEC INR 3.2 H (0.9-1.2) APTT 39.5 H (22.0-34.0) SEC Sodium 132 L (135-145) mmol/L Potassium 4.9 (3.6-5.0) mmol/L Chloride 95 L (101-111) mmol/L Carbon Dioxide 27.0 (21.0-31.0) mmol/L Anion Gap 14.9 BUN 47 H (7-18) mg/dL Creatinine 5.4 H (0.6-1.3) mg/dL Est Cr Clr Drug Dosing 14.13 mL/min Estimated GFR (MDRD) 10 BUN/Creatinine Ratio 8.70 Glucose 291 H (74-105) mg/dL Calcium 8.0 L (8.4-10.2) mg/dl Phosphorus 3.6 (2.5-4.6) mg/dL Magnesium 1.6 L (1.8-2.5) mg/dL Total Bilirubin 0.6 (0.2-1.0) mg/dL AST 18 (10-42) IU/L ALT 17 (10-60) IU/L Alkaline Phosphatase 174 H (42-121) IU/L Creatine Kinase (26-174) IU/L Creatine Kinase Index (0-2.4) % CK-MB (CK-2) (0.4-4.7) ng/mL Troponin I 0.05 H* (0.00-0.02) ng/ml B-Natriuretic Peptide 249 H (0-100) pg/ml Total Protein 7.7 (6.7-8.2) g/dl Albumin 3.0 L (3.2-5.5) g/dl Globulin 4.7 Albumin/Globulin Ratio 0.64 // Range/Units 16:09 WBC (5.0-10.0) 10^3/uL RBC (4.6-6.2) 10^6/uL Hgb (14.0-18.0) g/dL Hct (40.0-54.0) % MCV (80-100) fL MCH (27.0-34.0) pg MCHC (33.0-35.0) g/dL Plt Count (150-450) 10^3/uL Neut % (Auto) (42.2-75.2) % Lymph % (Auto) (20.5-50.1) % Blair % (Auto) (2-8) % Eos % (Auto) (1.0-3.0) % Baso % (Auto) (0.0-1.0) % PT (9.0-12.0) SEC INR (0.9-1.2) APTT (22.0-34.0) SEC Sodium (135-145) mmol/L Potassium (3.6-5.0) mmol/L Chloride (101-111) mmol/L Carbon Dioxide (21.0-31.0) mmol/L Anion Gap BUN (7-18) mg/dL Creatinine (0.6-1.3) mg/dL Est Cr Clr Drug Dosing mL/min Estimated GFR (MDRD) BUN/Creatinine Ratio Glucose (74-105) mg/dL Calcium (8.4-10.2) mg/dl Phosphorus (2.5-4.6) mg/dL Magnesium (1.8-2.5) mg/dL Total Bilirubin (0.2-1.0) mg/dL AST (10-42) IU/L ALT (10-60) IU/L Alkaline Phosphatase (42-121) IU/L Creatine Kinase 36 (26-174) IU/L Creatine Kinase Index 8.6 H (0-2.4) % CK-MB (CK-2) 3.10 (0.4-4.7) ng/mL Troponin I (0.00-0.02) ng/ml B-Natriuretic Peptide (0-100) pg/ml Total Protein (6.7-8.2) g/dl Albumin (3.2-5.5) g/dl Globulin Albumin/Globulin Ratio Meds: Medications Generic Name Dose Route Start Last Admin Trade Name Freq PRN Reason Stop Dose Admin Sodium Chloride 10 ml 08/01/18 15:52 08/01/18 16:05 Saline Flush FLUSH 10 ml ASDIRECTED PRN Administration Keep Vein Open Discontinued Medications Generic Name Dose Route Start Last Admin Trade Name Freq PRN Reason Stop Dose Admin Bacitracin 1 dose 08/01/18 17:07 08/01/18 17:18 Bacitracin Oint 1 Gm TOP 08/01/18 17:08 1 dose ONETIME ONE Administration - Radiology Interpretation Free Text/Narrative:: Margo Aranda ND - [facility] Final Radiology Report Call: [phone] assistance Online chat: [email or web address] Name: PATRIC DAY Age: 77Years M Date: 08/01/2018 SSN: -- : 1940 Study: CT HEAD WO Requesting Physician: KEVIN RESTREPO Images: 150 Addl Studies: Provided Clinical History: fall, head and back injury Contrast: Without Contrast Medium: Contrast Amount: Contrast Method: Page 1 of 2 EXAM: CT Head Without Intravenous Contrast CLINICAL HISTORY: 77 years old, male; Pain; Headache; Post-traumatic; Additional info: Fall, head and back injury TECHNIQUE: Axial computed tomography images of the head/brain without intravenous contrast. All CT scans at this facility use at least one of these dose optimization techniques: automated exposure control; mA and/or kV adjustment per patient size (includes targeted exams where dose is matched to clinical indication); or iterative reconstruction. Coronal and sagittal reformatted images were created and reviewed. COMPARISON: No relevant prior studies available. FINDINGS: Limitations: This examination is suboptimal due to artifact. Brain: There is mild generalized cerebral volume loss. Patchy areas of low attenuation scattered throughout the white matter are nonspecific, but likely represent moderate to severe small vessel ischemic changes. There is no evidence of midline shift, mass effect or cerebral edema. No acute intracranial hemorrhage is identified. Ventricles: Unremarkable. No ventriculomegaly. Bones/joints: Unremarkable. No acute fracture. Soft tissues: Unremarkable. Sinuses: Mild mucosal thickening is noted in the ethmoid air cells bilaterally. No paranasal sinus airfluid levels are identified. Mastoid air cells: Unremarkable as visualized. No mastoid effusion. Orbits: The patient is noted to be status post bilateral cataract surgery. IMPRESSION: PATRIC DAY | Final Radiology Report CONFIDENTIALITY STATEMENT This report is intended only for use by the referring physician, and only in accordance with law. If you received this in error, call [phone]. Page 2 of 2 No acute intracranial abnormality. Thank you for allowing us to participate in the care of your patient. Dictated and Authenticated by: Franki Lee MD 08/01/2018 5:04 PM Central Time IMPRESSION: No evidence of acute fracture or malalignment of the cervical spine. Thank you for allowing us to participate in the care of your patient. PATRIC DAY | Final Radiology Report CONFIDENTIALITY STATEMENT This report is intended only for use by the referring physician, and only in accordance with law. If you received this in error, call [phone]. Page 2 of 2 Dictated and Authenticated by: Franki Lee MD 08/01/2018 4:55 PM Central Time PATRIC DAY | Final Radiology Report CONFIDENTIALITY STATEMENT This report is intended only for use by the referring physician, and only in accordance with law. If you received this in error, call [phone]. Page 2 of 2 IMPRESSION: 1. Disc space narrowing and anterior hypertrophic spurring noted at L1-2 with vacuum disc phenomena noted. 2. Large hypodense mass noted in the left kidney incompletely imaged. Further evaluation is recommended to exclude neoplasm. Thank you for allowing us to participate in the care of your patient. Dictated and Authenticated by: Shreyas Andres DO 08/01/2018 4:54 PM Central Time IMPRESSION: Compression deformity of T4 is present. Fracture is estimated at 25% of the vertebral height. The thoracic spine demonstrates moderate degenerative changes at multiple levels. PATRIC DAY | Final Radiology Report CONFIDENTIALITY STATEMENT This report is intended only for use by the referring physician, and only in accordance with law. If you received this in error, call [phone]. Page 2 of 2 Thank you for allowing us to participate in the care of your patient. Dictated and Authenticated by: Shreyas Andres DO 08/01/2018 5:03 PM Central Time Name: PATRIC DAY Age: 77Years M Date: 08/01/2018 SSN: -- : 1940 Study: XR CHEST 1 VIEW Requesting Physician: KEVIN RESTREPO Images: 1 Addl Studies: Provided Clinical History: shortness of breath, dialysis pt, 22 pound weight gain in 2-3 days Contrast: Contrast Medium: Contrast Amount: Contrast Method: Page 1 of 2 EXAM: XR Chest, 1 View EXAM DATE/TIME: 08/01/2018 4:32 PM CLINICAL HISTORY: 77 years old, male; Signs and symptoms; Shortness of breath; Additional info: Shortness of breath, dialysis pt, 22 pound weight gain in 2-3 days TECHNIQUE: Frontal view of the chest. COMPARISON: CR - Chest 1V Frontal 04/21/2018 11:09 AM FINDINGS: Lungs: Nonspecific bibasilar consolidation is present, consistent with atelectasis, edema, or pneumonia. Mild interstitial prominence consistent with congestive change. Pleural space: Small left pleural effusion is present. No pneumothorax. Heart: The heart demonstrates moderate diffuse enlargement. Mediastinum: Unremarkable. Bones/joints: The thoracic spine demonstrates mild degenerative changes at multiple levels. IMPRESSION: 1. Nonspecific bibasilar consolidation is present, consistent with atelectasis, edema, or pneumonia. 2. Mild interstitial prominence consistent with congestive change. Thank you for allowing us to participate in the care of your patient. PATRIC DAY | Final Radiology Report CONFIDENTIALITY STATEMENT This report is intended only for use by the referring physician, and only in accordance with law. If you received this in error, call [phone]. Page 2 of 2 Dictated and Authenticated by: Shreyas Andres DO 08/01/2018 4:[address] Results Date: 08/01/18 CT Results Time: 16:46 Departure - Departure Time of Disposition: 17:40 Disposition: DC/Tfer to Acute Hospital 02 Condition: Serious Clinical Impression: Generalized weakness, Frequent falls, ESRD (end stage renal disease) on dialysis Traumatic compression fracture of T4 thoracic vertebra Qualifiers: Encounter type: initial encounter Fracture type: closed Qualified Code(s): S22.040A - Wedge compression fracture of fourth thoracic vertebra, initial encounter for closed fracture Skin tear of left hand without complication Qualifiers: Encounter type: initial encounter Qualified Code(s): S61.412A - Laceration without foreign body of left hand, initial encounter Skin tear of left forearm without complication Qualifiers: Encounter type: initial encounter Qualified Code(s): S51.812A - Laceration without foreign body of left forearm, initial encounter Head injury without concussion or intracranial hemorrhage Qualifiers: Encounter type: initial encounter Qualified Code(s): S09.90XA - Unspecified injury of head, initial encounter - Discharge Information Forms: ED Department Discharge, Interfacility Transfer EMTALA - My Orders Last 24 Hours: My Active Orders 08/01/18 15:48 Cervical Spine wo Cont [CT] Stat Head wo Cont [CT] Stat Lumbar Spine wo Cont [CT] Stat Thoracic Spine wo Cont [CT] Stat 08/01/18 15:50 Chest 1V Frontal [CR] Stat 08/01/18 15:51 EKG 12 Lead [EKG Documentation Completion] [RC] STAT Peripheral IV Insertion Adult [OM.PC] Stat 08/01/18 15:52 Blood Glucose Check, Bedside [RC] ONETIME Sodium Chloride 0.9% [Saline Flush] 10 ml FLUSH ASDIRECTED PRN Blood Culture x2 Reflex Set [OM.PC] Stat 08/01/18 15:53 Peripheral IV Care [RC] . DIRECTED 08/01/18 16:00 CULTURE BLOOD [BC] Stat 08/01/18 16:09 CULTURE BLOOD [BC] Stat - Assessment/Plan Last 24 Hours: My Active Orders 08/01/18 15:48 Cervical Spine wo Cont [CT] Stat Head wo Cont [CT] Stat Lumbar Spine wo Cont [CT] Stat Thoracic Spine wo Cont [CT] Stat 08/01/18 15:50 Chest 1V Frontal [CR] Stat 08/01/18 15:51 EKG 12 Lead [EKG Documentation Completion] [RC] STAT Peripheral IV Insertion Adult [OM.PC] Stat 08/01/18 15:52 Blood Glucose Check, Bedside [RC] ONETIME Sodium Chloride 0.9% [Saline Flush] 10 ml FLUSH ASDIRECTED PRN Blood Culture x2 Reflex Set [OM.PC] Stat 08/01/18 15:53 Peripheral IV Care [RC] . DIRECTED 08/01/18 16:00 CULTURE BLOOD [BC] Stat 08/01/18 16:09 CULTURE BLOOD [BC] Stat I have read and agree with the documentation that has been completed regarding this visit. By signing this record, I attest that the documentation was completed in my physical presence and is an accurate record of the encounter."
== END 2018-08-01 20:09 ==
LOC: DL.ED 15:36
DX: S22.049A Unspecified fracture of fourth thoracic vertebra, initial encounter for closed fracture (principal); S09.90XA Unspecified injury of head, initial encounter; S61.412A Laceration without foreign body of left hand, initial encounter; S51.812A Laceration without foreign body of left forearm, initial encounter; R53.1 Weakness; I12.9 Hypertensive chronic kidney disease with stage 1 through stage 4 chronic kidney disease, or unspecified chronic kidney disease; N18.6 End stage renal disease; Z99.2 Dependence on renal dialysis; E11.22 Type 2 diabetes mellitus with diabetic chronic kidney disease; Z79.4 Long term (current) use of insulin; Z79.01 Long term (current) use of anticoagulants; Z79.899 Other long term (current) drug therapy; Z88.8 Allergy status to other drugs, medicaments and biological substances; Z88.2 Allergy status to sulfonamides; Z88.1 Allergy status to other antibiotic agents; W19.XXXA Unspecified fall, initial encounter; Y92.002 Bathroom of unspecified non-institutional (private) residence as the place of occurrence of the external cause
CPT/HCPCS: 36415; 70450; 71045; 72125; 72128; 72131; 80053; 82550; 82553; 82962; 83735; 83880; 84100; 84484; 85025; 85610; 85730; 87040; 93005; 93010; 99285; J7050; 99284

== ENCOUNTER 2018-08-15 08:28 | Emergency (ER) | payer MEDICARE, OTHER ==
--- NOTE | 2018-08-15 08:45 | EDM.PDOC ---
ED HPI GENERAL MEDICAL PROBLEM - General Stated Complaint: IN BY AMBULANCE Time Seen by Provider: 08/15/18 08:25 Source of Information: Reports: Patient, EMS History Limitations: Reports: No Limitations - History of Present Illness INITIAL COMMENTS - FREE TEXT/NARRATIVE: This 77 yo male patient was [facility] due to increased weakness, not responding normally, a low blood pressure and an irregular heart rate. This patient is a dialysis patient with his last run on Tuesday (due for dialysis today). The patient has a history of ESRF, A-fib (on Warfarin), morbid obesity, and CHF. The patient reports that he has been having more difficulties moving around (requires assistance to be able to get out of his bed and chair. The patient reports that he can normally move around, but has not been able to do anything today. Onset: Today Duration: Constant Location: Reports: Generalized Quality: Reports: Other Severity: Moderate Improves with: Reports: None Worsens with: Reports: None Associated Symptoms: Reports: Weakness Generalized Pain Score (Numeric/FACES): 10 - Related Data Allergies Allergy/AdvReac Type Severity Reaction Status Date / Time cephalexin Allergy Unknown unknown Verified 08/15/18 08:37 erythromycin base Allergy Swelling Verified 08/15/18 08:37 Iodinated Contrast- Oral and Allergy Swelling Verified 08/15/18 08:37 IV Dye [Iodinated Contrast Media - IV Dye] levofloxacin [From Levaquin] Allergy Swelling Verified 08/15/18 08:37 sulfamethoxazole Allergy Swelling Verified 08/15/18 08:37 [From Bactrim] trimethoprim [From Bactrim] Allergy Swelling Verified 08/15/18 08:37 Home Meds: Home Meds Allopurinol [Zyloprim] 100 mg PO DAILY 10/04/16 [History] Docusate Sodium [Colace] 100 mg PO BID 10/04/16 [History] Insulin Aspart [NovoLOG] 15 unit SUBCUT ACBED 10/04/16 [History] Insulin Glargine,Hum.Rec.Anlog [Lantus Solostar] 45 unit SQ BEDTIME 10/04/16 [ History] Simvastatin [Zocor] 40 mg PO BEDTIME 10/04/16 [History] Warfarin Sodium [Coumadin] 7.5 mg PO ASDIRECTED 10/04/16 [History] Tamsulosin HCl [Flomax] 0.4 mg PO BEDTIME 09/30/17 [History] Warfarin [Coumadin] 5 mg PO ASDIRECTED 09/30/17 [History] Calcium Acetate [PhosLo] 667 mg PO ASDIRECTED 08/01/18 [History] Gabapentin [Neurontin] 300 mg PO DAILY 08/01/18 [History] Magnesium Oxide [Magnesium] 400 mg PO DAILY 08/01/18 [History] Past Medical History HEENT History: Reports: Impaired Vision Cardiovascular History: Reports: Blood Clots/VTE/DVT, High Cholesterol, Hypertension, SOB on Exertion Respiratory History: Reports: SOB Gastrointestinal History: Reports: Hiatal Hernia Genitourinary History: Reports: Dialysis Endocrine/Metabolic History: Reports: None, Diabetes, Type II, Obesity/BMI 30+ - Past Surgical History HEENT Surgical History: Reports: Cataract Surgery Other Musculoskeletal Surgeries/Procedures:: multiple surgies LLE Social & Family History - Family History Family Medical History: Noncontributory - Caffeine Use Caffeine Use: Reports: None - Living Situation & Occupation Living situation: Reports: Alone Occupation: Retired ED ROS GENERAL - Review of Systems Review Of Systems: ROS reveals no pertinent complaints other than HPI. ED EXAM, GENERAL - Physical Exam Exam: See Below Exam Limited By: No Limitations General Appearance: Alert, WD/WN, Moderate Distress, Obese (Morbid obesity) Eye Exam: Bilateral Eye: EOMI, Normal Inspection, PERRL Ears: Normal External Exam, Normal Canal, Hearing Grossly Normal, Normal TMs Nose: Normal Inspection, Normal Mucosa, No Blood Throat/Mouth: Normal Inspection, Normal Lips, Normal Teeth, Normal Gums, Normal Oropharynx, Normal Voice, No Airway Compromise Head: Atraumatic, Normocephalic Neck: Normal Inspection, Supple, Non-Tender, Full Range of Motion Respiratory/Chest: No Respiratory Distress, Lungs Clear, Normal Breath Sounds, No Accessory Muscle Use, Chest Non-Tender Cardiovascular: Normal Peripheral Pulses, No Gallop, No JVD, No Murmur, No Rub, Irregularly Irregular GI/Abdominal: Normal Bowel Sounds, Soft, Non-Tender, Other (obese) (Male) Exam: Deferred Rectal (Males) Exam: Deferred Back Exam: Normal Inspection, Full Range of Motion, NT Extremities: Normal Inspection, Normal Range of Motion, Non-Tender, Normal Capillary Refill, No Pedal Edema Neurological: Alert, Oriented, CN II-XII Intact, Normal Cognition, Normal Gait, Normal Reflexes, No Motor/Sensory Deficits Psychiatric: Normal Affect, Normal Mood Skin Exam: Warm, Dry, Intact, Normal Color, No Rash Lymphatic: No Adenopathy Course - Vital Signs Last Recorded V/S: Last Vital Signs Temp 36.0 C 08/15/18 08:30 Pulse 114 H 08/15/18 08:30 Resp 20 08/15/18 08:30 BP 80/32 L 08/15/18 08:30 Pulse Ox 97 08/15/18 08:30 - Orders/Labs/Meds Orders: Active Orders 24 hr Category Date Time Status EKG Documentation Completion [RC] URGENT Care 08/15/18 08:27 Active RT Aerosol Therapy [RC] ASDIRECTED Care 08/15/18 09:12 Ordered Labs: Laboratory Tests 08/15/18 08/15/18 08/15/18 Range/Units 08:37 08:37 08:37 WBC 10.1 H (5.0-10.0) 10^3/uL RBC 3.93 L (4.6-6.2) 10^6/uL Hgb 10.5 L (14.0-18.0) g/dL Hct 36.7 L (40.0-54.0) % MCV 93.4 (80-100) fL MCH 26.7 L (27.0-34.0) pg MCHC 28.6 L (33.0-35.0) g/dL Plt Count 177 (150-450) 10^3/uL Neut % (Auto) 73.5 (42.2-75.2) % Lymph % (Auto) 15.6 L (20.5-50.1) % Harris % (Auto) 6.5 (2-8) % Eos % (Auto) 3.9 H (1.0-3.0) % Baso % (Auto) 0.5 (0.0-1.0) % PT 21.0 H D (9.0-12.0) SEC INR 2.2 H (0.9-1.2) Sodium 131 L (135-145) mmol/L Potassium 7.3 H* D (3.6-5.0) mmol/L Chloride 94 L (101-111) mmol/L Carbon Dioxide 24.0 (21.0-31.0) mmol/L Anion Gap 20.3 BUN 89 H D (7-18) mg/dL Creatinine 9.8 H D (0.6-1.3) mg/dL Est Cr Clr Drug Dosing TNP Estimated GFR (MDRD) 5 BUN/Creatinine Ratio 9.08 Glucose 198 H (74-105) mg/dL Calcium 8.6 (8.4-10.2) mg/dl Total Bilirubin 0.6 (0.2-1.0) mg/dL AST 16 (10-42) IU/L ALT 13 (10-60) IU/L Alkaline Phosphatase 165 H (42-121) IU/L Troponin I 0.04 H* (0.00-0.02) ng/ml B-Natriuretic Peptide 224 H (0-100) pg/ml Total Protein 8.1 (6.7-8.2) g/dl Albumin 3.1 L (3.2-5.5) g/dl Globulin 5.0 Albumin/Globulin Ratio 0.62 Meds: Medications Discontinued Medications Generic Name Dose Route Start Last Admin Trade Name Chiloq PRN Reason Stop Dose Admin Albuterol 2.5 mg 08/15/18 09:11 08/15/18 09:25 Proventil Neb Soln NEB 08/15/18 09:12 2.5 mg ONETIME ONE Administration Calcium Gluconate 1 gm 08/15/18 09:11 08/15/18 09:25 Calcium Gluconate IVPUSH 08/15/18 09:12 1 gm ONETIME ONE Administration Dextrose/Water 50 ml 08/15/18 09:27 08/15/18 09:46 Dextrose 50% In Water IVPUSH 08/15/18 09:28 50 ml ONETIME ONE Administration Insulin Human Regular 8 unit 08/15/18 09:27 08/15/18 09:46 Humulin R IV 08/15/18 09:28 8 units ONETIME ONE Administration Sodium Bicarbonate 50 meq 08/15/18 09:14 08/15/18 09:25 Sodium Bicarbonate 8.4% IVPUSH 08/15/18 09:15 50 meq ONETIME ONE Administration Sodium Polystyrene Sulfonate 45 gm 08/15/18 09:27 08/15/18 10:05 Kayexalate PO 08/15/18 09:28 Not Given NOW ONE Departure - Departure Time of Disposition: 10:08 Disposition: DC/Tfer to [facility] 02 Condition: Poor Clinical Impression: Hyperkalemia, Dialysis patient - Discharge Information *PRESCRIPTION DRUG MONITORING PROGRAM REVIEWED*: Not Applicable *COPY OF PRESCRIPTION DRUG MONITORING REPORT IN PATIENT YAHIR: Not Applicable Forms: Interfacility Transfer EMTALA Care Plan Goals: Discussed the examination, history, treatments and lab results with Dr. Odonnell ( Hospitalist with [facility] in ). Dr. Odonnell accepted the patient for continued evaluation and further management. The patient will be transferred by [facility]. - My Orders Last 24 Hours: My Active Orders 08/15/18 08:27 EKG Documentation Completion [RC] URGENT 08/15/18 09:12 RT Aerosol Therapy [RC] ASDIRECTED - Assessment/Plan Last 24 Hours: My Active Orders 08/15/18 08:27 EKG Documentation Completion [RC] URGENT 08/15/18 09:12 RT Aerosol Therapy [RC] ASDIRECTED
[2018-08-15 08:57] VITALS: BP 80/32
[2018-08-15 09:03] LABS: CHLORIDE,CL 94 mmol/L (101-111); SODIUM,NA 131 mmol/L (135-145)
[2018-08-15 09:07] LABS: ANION GAP 20.3
[2018-08-15] MEDS ORDERED: Albuterol 0.083% 2.5 MG/3 ML Neb Soln NEB ONE (09:11)
[2018-08-15] MEDS ORDERED: Calcium Gluconate 10% 1 GM/10 ML SDV IVPUSH ONE (09:11)
[2018-08-15] MEDS ORDERED: Sodium Bicarbonate 8.4% 50 MEQ/50 ML Syringe IVPUSH ONE (09:14)
[2018-08-15] MEDS ORDERED: Insulin Regular, Human 100 Units/ML 3 ML Vial IV ONE (09:27)
[2018-08-15] MEDS ORDERED: Sodium Polystyrene Sulfonate 15 GM/60 ML Susp 60 ML Bot PO ONE (09:27)
[2018-08-15] MEDS ORDERED: 50% Dextrose in Water 50 ML Syringe IVPUSH ONE (09:27)
--- NOTE | 2018-08-15 17:28 | EKG ---
08/15/2018 - PATRIC DAY - TIME: 8:28 a.m. FINDINGS: As per my reading, atrial fibrillation at 89. Nonspecific IVCD with LAD. [facility] /[id number]
== END 2018-08-15 10:40 ==
LOC: DL.ED 08:28
DX: E87.5 Hyperkalemia (principal); I13.2 Hypertensive heart and chronic kidney disease with heart failure and with stage 5 chronic kidney disease, or end stage renal disease; I50.9 Heart failure, unspecified; E11.22 Type 2 diabetes mellitus with diabetic chronic kidney disease; N18.6 End stage renal disease; Z99.2 Dependence on renal dialysis; E66.01 Morbid (severe) obesity due to excess calories; Z91.041 Radiographic dye allergy status; Z88.1 Allergy status to other antibiotic agents; Z88.2 Allergy status to sulfonamides; Z79.4 Long term (current) use of insulin; Z79.01 Long term (current) use of anticoagulants; Z79.899 Other long term (current) drug therapy
CPT/HCPCS: 36415; 80053; 82962; 83880; 84484; 85025; 85610; 93005; 93010; 96374; 96375; 99285; J0610; J1815; J7060; J7613-GY